=== PATIENT | male | born 1965 | race Two or more races ===

== ENCOUNTER 2025-03-16 12:16 | Inpatient (IN) | payer OTHER, BC ==
[~2025-03-16] VITALS: Ht 180.3 cm; Wt 89.0 kg
[~2025-03-16 12:16] MED LIST: RAMI10CA38
[2025-03-16 12:38] LABS: Hematocrit 49.1 % (41.0-53.0); Hemoglobin 16.7 g/dL (13.5-17.5); Mean Corpuscular Hemoglobin 31.6 pg (28.0-32.0); Mean Corpuscular Volume 92.9 fL (80.0-100.0); Nucleated Red Blood Cells % 0.2 %
[2025-03-16 12:46] LABS: Potassium 3.5 mmol/L (3.5-5.1); Sodium 140 mmol/L (136-145)
[2025-03-16 12:47] LABS: Anion Gap 9 (5-15); Calcium 9.5 mg/dL (8.7-10.4); Carbon Dioxide 34 mmol/L (20-31); Chloride 97 mmol/L (98-107)
[2025-03-16 12:52] LABS: BUN/Creatinine Ratio 14.9 (10.0-20.0); Blood Urea Nitrogen 10 mg/dL (9-23)
[2025-03-16 12:56] LABS: Glucose 122 mg/dL (74-106)
--- NOTE | 2025-03-16 13:20 | ECG ---
[facility] Test Date: 2025-03-16 Test Time: 13:18:33 Pat Name: SANGEETA LARRY Department: [facility] ED Room: [address] [place] [address] Gender: M Public Health Advisor: DA : 1965 Requested By: TONI PERRIN Order Number: [id number] Reading MD: Tmoasz Morse Measurements Intervals [place] Rate: 62 P: 43 TN: 196 QRS: 75 QRSD: 112 T: 26 QT: 411 QTc: 418 Interpretive Statements Sinus rhythm Borderline intraventricular conduction delay Electronically Signed On 03-17-2025 15:28:30 PST by Tomasz Morse Please click the below link to view image of tracing.
--- NOTE | 2025-03-16 13:21 | DVH ---
EXAM: XY CHEST PORTABLE HISTORY: CHEST PAIN TECHNIQUE: 1 view of the chest COMPARISON: None FINDINGS/IMPRESSION: LUNGS: No pleural effusion, consolidation, or pneumothorax. Low lung volumes, which cause crowding of the bronchovascular markings. MEDIASTINUM: Unremarkable. BONES: No acute osseous abnormality. OTHER: None.
--- NOTE | 2025-03-16 13:35 | ED.PDOC ---
HPI Comments This is a 59 year old male presenting to the ED with chief complaint of chest pain. Patient reports that he has been experiencing chest tightness with associated cough and hemoptysis for the past few days. Patient relays that he has had a recent cold as well. Patient denies any SOB, dizziness, fever, chills, N/V, or headache. Chief Complaint: Chest Pain Time Seen by MD: 13:32 Primary Care Provider: HENRY Villela Notes: Nurses Notes, Medications, Allergies Allergies: Coded Allergies: Ciprofloxacin (Verified Allergy, Unknown, 03/16/25) Hydrocodone (Verified Allergy, Unknown, 03/16/25) Home Meds Reported Medications [Ausitiqm40 Mg] (Ramipril) 10 MG CAP No Conflict Check, MG 08/06/12 Information Source: Patient Mode of Arrival: Ambulatory Severity: Moderate Timing: Days Duration: Since onset Prehospital treatment: None Location: Substernal Quality: Tightness Onset: At Rest Cardiac Risk Factors: HTN, Diabetes PE Risk Factors: None History of: None Past Medical History PAST MEDICAL HISTORY: DM, HTN Surgical History: Denies all surgeries Family History Family History: Reviewed,noncontributory to illness, Unknown Social History Smoker: Non-Smoker Alcohol: Denies ETOH Use Drugs: Denies Drug Use Lives In: Home Constitutional: denies: chills, diaphoresis, fatigue, fever, malaise, sweats, weakness, others EENTM: denies: blurred vision, double vision, ear bleeding, ear discharge, ear drainage, ear pain, ear ringing, eye pain, eye redness, hearing loss, mouth pain, mouth swelling, nasal discharge, nose bleeding, nose congestion, nose pain, photophobia, tearing, throat pain, throat swelling, voice changes, others Respiratory: reports: cough, hemoptysis; denies: orthopnea, SOB at rest, shortness of breath, SOB with excertion, stridor, wheezing, others Cardiovascular: reports: chest pain; denies: dizzy spells, diaphoresis, Dyspnea on exertion, edema, irregular heart beat, left arm pain, lightheadedness, palpitations, PND, syncope, others Gastrointestinal: denies: abdomen distended, abdominal pain, blood streaked bowels, constipated, diarrhea, dysphagia, difficulty swallowing, hematemesis, melena, nausea, poor appetite, poor fluid intake, rectal bleeding, rectal pain, vomiting, others Genitourinary: denies: burning, dysuria, flank pain, frequency, hematuria, incontinence, penile discharge, penile sore, pain, testicle pain, testicle swelling, urgency, others Neurological: denies: dizziness, fainting, headache, left sided numbness, left sided weakness, numbness, paresthesia, pre-existing deficit, right sided numbness, right sided weakness, seizure, speech problems, tingling, tremors, weakness, others Musculoskeletal: denies: back pain, gout, joint pain, joint swelling, muscle pain, muscle stiffness, neck pain, others Integumetry: denies: bruises, change in color, change in hair/nails, dryness, laceration, lesions, lumps, rash, wounds, others Allergic/Immunocompromised: denies: Difficulty Healing, Frequent Infections, Hives, Itching, others Hematologic/Lymphatic: denies: anemia, blood clots, easy bleeding, easy bruising, swollen glands, others Endocrine: denies: excessive hunger, excessive sweating, excessive thirst, excessive urination, flushing, intolerance to cold, intolerance to heat, unexplained weight gain, unexplained weight loss, others Psychiatric: denies: anxiety, bipolar disorder, depression, hopeless, panic di sorder, schizophrenia, sleepless, suicidal, others All Other Systems: Reviewed and Negative Physical Exam General Appearance: Moderate Distress, Normal HEENT: Normal ENT Inspection, Pharynx Normal, TMs Normal Neck: Full Range of Motion, Non-Tender, Normal, Normal Inspection Respiratory: Chest Non-Tender, Lungs Clear, No Accessory Muscle Use, No Respiratory Distress, Normal Breath Sounds Cardiovascular: No Edema, No JVD, No Murmur, No Gallop, Normal Peripheral Pulses, Regular Rate/Rhythm Breast Exam: Deferred Gastrointestinal: No Organomegaly, Non Tender, No Pulsatile Mass, Normal Bowel Sounds, Soft Genitalia: Deferred Pelvic: Deferred Rectal: Deferred Extremities: No calf tenderness, Normal capillary refill, Normal inspection, Normal range of motion, Non-tender, No pedal edema Musculoskeletal : Apperance: Normal Neurologic: Alert, rail splitter II-XII nml as Tested, No Motor Deficits, Normal Affect, Normal Mood, No Sensory Deficits Cerebellar Function: Normal Reflexes: Normal Skin: Dry, Normal Color, Warm Peripheral Pulses: 3+ Radial (R), 3+ Radial (L) Lymphatic: No Adenopathy EKG EKG : Pulse Rate (adult): 62 [place]: Normal Cardiac Rhythm: NSR Block: None Hypertrophy: None ST: Normal Was a procedure done? Was a procedure done?: No CP Differential Dx Differential Diagnosis: A-fib, A-Flutter, Angina, Anxiety / Panic Attack, Atrial Dysrhythmia, Electrolyte Disorder X-Ray, Labs, Meds, VS Vital Signs Date Time Temp Pulse Resp B/P (MAP) Pulse Ox O2 Delivery O2 Flow Rate FiO2 03/16/25 14:20 126/74 03/16/25 14:15 97.4 59 16 126/74 (91) 95 97.4 03/16/25 13:35 62 03/16/25 13:18 62 03/16/25 12:20 59 03/16/25 12:18 97.7 59 20 148/94 95 97.7 Lab Test 03/16/25 14:00 03/16/25 13:15 03/16/25 12:25 Range/Units Urine Color Light-yellow Yellow Urine Clarity Clear Clear Urine pH 6.5 5.0-9.0 Urine Specific [place] 1.012 1.001-1.035 Urine Protein Negative Negative Urine Ketones Negative Negative Urine Blood Negative Negative /uL Urine Nitrite Negative Negative Urine Bilirubin Negative Negative Urine Urobilinogen Normal Negative mg/dL Urine Leukocyte Esterase Negative Negative /uL Urine RBC None seen 0 - 3 /hpf Urine Microscopic WBC 0-3 /HPF Urine Squamous Epithelial Cells None seen <5 /hpf Urine Bacteria None seen None Seen /hpf Urine Glucose Normal Normal mg/dL Troponin I High Sensitivity 5 4 </=54 ng/L White Blood Count 6.5 4.4-10.8 10^3/uL Red Blood Count 5.28 4.5-5.90 10^6/uL Hemoglobin 16.7 13.5-17.5 g/dL Hematocrit 49.1 41.0-53.0 % Mean Corpuscular Volume 92.9 80.0-100.0 fL Mean Corpuscular Hemoglobin 31.6 28.0-32.0 pg Mean Corpuscular Hemoglobin Concent 34.0 32.0-36.0 g/dL Red Cell Distribution Width 12.6 11.8-14.3 % Platelet Count 144 140-450 10^3/uL Mean Platelet Volume 9.7 6.9-10.8 fL Neutrophils (%) (Auto) 69.5 37.0-80.0 % Lymphocytes (%) (Auto) 21.8 10.0-50.0 % Monocytes (%) (Auto) 7.6 0.0-12.0 % Eosinophils (%) (Auto) 0.8 0.0-7.0 % Basophils (%) (Auto) 0.3 0.0-2.0 % Neutrophils # (Auto) 4.5 1.6-8.6 10 ^3/uL Lymphocytes # (Auto) 1.4 0.4-5.4 10 ^3/uL Monocytes # (Auto) 0.5 0-1.3 10 ^3/uL Eosinophils # (Auto) 0.1 0-0.8 10 ^3/uL Basophils # (Auto) 0 0-0.2 10 ^3/uL Nucleated Red Blood Cells 0.2 % Sodium Level 140 136-145 mmol/L Potassium Level 3.5 3.5-5.1 mmol/L Chloride Level 97 L 98-107 mmol/L Carbon Dioxide Level 34 H 20-31 mmol/L Anion Gap 9 5-15 Blood Urea Nitrogen 10 9-23 mg/dL Creatinine 0.67 L 0.700-1.30 mg/dL Glomerular Filtration Rate Calc 108 >90 mL/min BUN/Creatinine Ratio 14.9 10.0-20.0 Serum Glucose 122 H 74-106 mg/dL Calcium Level 9.5 8.7-10.4 mg/dL Current Medications Medications (Trade) Dose Ordered Sig/Manuel Route Start Time Stop Time Status Last Admin Aspirin 325 mg ONCE ONCE PO 03/16/25 13:30 03/16/25 13:31 DC 03/16/25 14:19 Nitroglycerin (Ntrostat Sublingual) 0.4 mg ONCE ONCE SL 03/16/25 13:30 03/16/25 13:31 DC 03/16/25 14:20 Patient alert. Complaining of chest pain. Vitals stable. Answering questions. Was given aspirin. Was given nitro. WBC within normal limits. Hemoglobin within normal limits. EKG reviewed does not show any acute changes. Continues to have chest pain. Unstable for transfer. Norden approved inpatient admission [id number]. Continue monitoring. X-Ray, Labs, Meds, VS Comment [facility] [address] [facility] [address] Ph: [phone] DIAGNOSTIC IMAGING Diagnostic Imaging Report : [id number] Signed PATIENT: SANGEETA LARRY ACCT: [id number] UNIT: [id number] : 1965 LOC: ER ROOM / BED: / AGE / SEX: 59 / M ADM STATUS: REG ER SERVICE 21 ORDERING PHYSICIAN: TONI PERRIN MD PROCEDURE(s): CXRP - CHEST PORTABLE REASON: CHEST PAIN ORDER NUMBER(s): [id number], ACCESSION NUMBER(s): [id number] EXAM: XY CHEST PORTABLE HISTORY: CHEST PAIN TECHNIQUE: 1 view of the chest COMPARISON: None FINDINGS/IMPRESSION: LUNGS: No pleural effusion, consolidation, or pneumothorax. Low lung volumes, which cause crowding of the bronchovascular markings. MEDIASTINUM: Unremarkable. BONES: No acute osseous abnormality. OTHER: None. ATED BY: SCHUYLER LANDIS MD DICTATED DATE/TIME: 03/16/251317 SIGNED BY: SCHUYLER LANDIS MD SIGNED DATE/TIME: 03/16/251317 CC: Images Reviewed?: Images reviewed and evaluated by me Time of 1ST Reevaluation: 14:32 Reevaluation 1ST: Unchanged Patient Education/Counseling: Diagnosis, Treatment Family Education/Counseling: No Family Present SEPSIS Sepsis Screen Date sepsis recognized/suspect: Mar 16, 2025 Time Sepsis recognized/suspect: 1218 Recent Procedure: No On Antibiotic Therapy: No Respiratory Rate >20: No Heart Rate >90: No Temp<36 C (96.8 F) or >38.3 C: No SBP <90 or MAP <65 mmHG: No New Acute Mental Status Change: No Is the patient on CPAP, BIPAP,: No Physician Orders Chest Portable (03/16/25 12:22) Electrocardigram (03/16/25 13:18) Electrocardigram (03/16/25 15:18) Vital Signs Date Time Temp Pulse Resp B/P (MAP) Pulse Ox O2 Delivery O2 Flow Rate FiO2 03/16/25 14:20 126/74 03/16/25 14:15 97.4 59 16 126/74 (91) 95 97.4 03/16/25 13:35 62 03/16/25 13:18 62 03/16/25 12:20 59 03/16/25 12:18 97.7 59 20 148/94 95 97.7 Laboratory Tests Test 03/16/25 12:25 White Blood Count 6.5 10^3/uL (4.4-10.8) Medications Medications Dose Ordered Sig/Manuel Route Start Time Stop Time Status Last Admin Dose Admin Aspirin 325 mg ONCE ONCE PO 03/16/25 13:30 03/16/25 13:31 DC 03/16/25 14:19 Nitroglycerin 0.4 mg ONCE ONCE SL 03/16/25 13:30 03/16/25 13:31 DC 03/16/25 14:20 Departure 1 Departure Time of Disposition: 14:24 Impression: Primary Impression: Chest pain of unknown etiology Disposition: ADMITTED INPATIENT Admit to: Med Surg Condition: Guarded Critical Care Note Critical Care Time?: Yes (90 min-critical care time only) Stability Stability form required: No Heart Score Heart Score: Heart Score Response (Comments) Value History Slightly Suspicious 0 EKG Normal 0 Age 45-64 1 Risk Factors >3 or Hx ASHD 2 Troponin Normal limit 0 Total 3 I personally scribed for TONI PERRIN MD ([email or web address]) on 03/16/25 at 13:35. Electronically submitted by Wagner Larson ([email or web address]). I personally scribed for TONI PERRIN MD ([email or web address]) on 03/16/25 at 13:35. Electronically submitted by Wagner Larson ([email or web address]). I personally scribed for TONI PERRIN MD ([email or web address]) on 03/16/25 at 13:57. Electronically submitted by Wagner Larson ([email or web address]). TONI PERRIN MD Mar 16, 2025 13:35
[2025-03-16] MEDS: NITROGLYCERIN 0.4 MG SL TAB SL ONE (14:20)
[2025-03-16 14:38] LABS: Urine Protein, UAD Negative (Negative)
[2025-03-16] MEDS ORDERED: ONDANSETRON HCL 4 MG/2 ML VIAL IV PRN (19:15)
[2025-03-16] MEDS ORDERED: NITROGLYCERIN 0.4 MG SL TAB SL PRN (19:15)
[2025-03-16] MEDS ORDERED: MORPHINE SULFATE INJ 2 MG/ml SYRG IV PRN (19:15)
[2025-03-16] MEDS ORDERED: ACETAMINOPHEN 325 MG TAB PO PRN (19:15)
[2025-03-16] MEDS ORDERED: DEXTROSE (50%) 50ML SYRG IV PRN (19:15)
[2025-03-16] MEDS: InsuLIN REG 1unit/0.01ml Soln (100units/ml) SC SCH (22:00)
[2025-03-16] MEDS: ACCU-CHEK COMFORT CURVE STRIP VI SCH (22:16)
[2025-03-16 22:33] VITALS: BP 127/68; PULSE 61; RESP 18; O2SAT 93
--- NOTE | 2025-03-16 22:36 | DVHHP2 ---
History of Present Illness Reason for Visit: Chest pain History of Present Illness 69-year-old male presents for evaluation of chest pain. Patient reports a two day history of substernal pressure-like nonradiating chest pain denies nausea or vomiting. No shortness for breath. No cough or fever. Past Medical History Hypertension, diabetes mellitus Past Surgical History Denies Family History Noncontributory Smoke: No ALCOHOL: none Drugs: None Lives: with Family Review of Systems Review of Systems Review of systems are currently negative otherwise addressed in HPI. Allergies: Coded Allergies: Ciprofloxacin (Verified Allergy, Unknown, 03/16/25) Hydrocodone (Verified Allergy, Unknown, 03/16/25) Medications Current Medications Medications Dose Ordered Sig/Manuel Route Start Time Stop Time Status Last Admin Dose Admin Aspirin 81 mg DAILY PO 03/17/25 10:00 Lisinopril 10 mg DAILY PO 03/17/25 10:00 Hydrochlorothiazide 12.5 mg DAILY PO 03/17/25 10:00 Diagnostic Test (Pha) 1 strip ACHS 03/16/25 22:00 03/16/25 22:16 1 STRIP Insulin Human Regular ACHS SC 03/16/25 22:00 Dextrose 50 ml UD PRN IV 03/16/25 19:15 Ondansetron HCl 4 mg Q4HP PRN IV 03/16/25 19:15 Acetaminophen 650 mg Q6HP PRN PO 03/16/25 19:15 Nitroglycerin 0.4 mg Q5MINP PRN SL 03/16/25 19:15 Morphine Sulfate 2 mg Q30M PRN IV 03/16/25 19:15 Exam Vital Signs Vital Signs Date Time Temp Pulse Resp B/P (MAP) Pulse Ox O2 Delivery O2 Flow Rate FiO2 03/16/25 22:24 Room Air* 0 21 03/16/25 20:03 98.2 60 16 143/75 (97) 95 98.2 Exam Gen: 59-year-old male in mild distress Skin: Warm, dry, normal color and texture, no rash. HEENT: Normocephalic atraumatic, mucous membranes moist and pink. Neck: Cervical and supraclavicular nodes normal without enlargement, trachea is midline, thyroid gland is normal without masses. Pulmonary: Clear to auscultation and percussion bilaterally. Cardiac: Regular rate and rhythm. No murmur Abdomen: Soft, nontender, nondistended, bowel sounds present all 4 quadrants, no guarding, no rigidity, no organomegaly. Extremities: No cyanosis, clubbing, no edema Neuro: Cranial nerves II through XII grossly intact, normal affect and speech, no focal motor deficits. Labs/Xrays ORDERING PHYSICIAN: TONI PERRIN MD PROCEDURE(s): CXRP - CHEST PORTABLE REASON: SOB ORDER NUMBER(s): [id number], ACCESSION NUMBER(s): [id number] INDICATION: SOB TECHNIQUE: Frontal view of the chest. COMPARISON: XY CHEST XRAY 1 VIEW on DOS: 02/17/25 FINDINGS: . The heart and mediastinal contours are grossly unremarkable. There is no evidence of pleural disease. The lungs are clear. The bony structures of the chest are intact without fracture. IMPRESSION: 1. No evidence of acute disease. Labs Test 03/16/25 14:00 03/16/25 13:15 03/16/25 12:25 Range/Units Urine Color Light-yellow Yellow Urine Clarity Clear Clear Urine pH 6.5 5.0-9.0 Urine Specific [place] 1.012 1.001-1.035 Urine Protein Negative Negative Urine Ketones Negative Negative Urine Blood Negative Negative /uL Urine Nitrite Negative Negative Urine Bilirubin Negative Negative Urine Urobilinogen Normal Negative mg/dL Urine Leukocyte Esterase Negative Negative /uL Urine RBC None seen 0 - 3 /hpf Urine Microscopic WBC 0-3 /HPF Urine Squamous Epithelial Cells None seen <5 /hpf Urine Bacteria None seen None Seen /hpf Urine Glucose Normal Normal mg/dL Troponin I High Sensitivity 5 </=54 ng/L White Blood Count 6.5 4.4-10.8 10^3/uL Red Blood Count 5.28 4.5-5.90 10^6/uL Hemoglobin 16.7 13.5-17.5 g/dL Hematocrit 49.1 41.0-53.0 % Mean Corpuscular Volume 92.9 80.0-100.0 fL Mean Corpuscular Hemoglobin 31.6 28.0-32.0 pg Mean Corpuscular Hemoglobin Concent 34.0 32.0-36.0 g/dL Red Cell Distribution Width 12.6 11.8-14.3 % Platelet Count 144 140-450 10^3/uL Mean Platelet Volume 9.7 6.9-10.8 fL Neutrophils (%) (Auto) 69.5 37.0-80.0 % Lymphocytes (%) (Auto) 21.8 10.0-50.0 % Monocytes (%) (Auto) 7.6 0.0-12.0 % Eosinophils (%) (Auto) 0.8 0.0-7.0 % Basophils (%) (Auto) 0.3 0.0-2.0 % Neutrophils # (Auto) 4.5 1.6-8.6 10 ^3/uL Lymphocytes # (Auto) 1.4 0.4-5.4 10 ^3/uL Monocytes # (Auto) 0.5 0-1.3 10 ^3/uL Eosinophils # (Auto) 0.1 0-0.8 10 ^3/uL Basophils # (Auto) 0 0-0.2 10 ^3/uL Nucleated Red Blood Cells 0.2 % Sodium Level 140 136-145 mmol/L Potassium Level 3.5 3.5-5.1 mmol/L Chloride Level 97 L 98-107 mmol/L Carbon Dioxide Level 34 H 20-31 mmol/L Anion Gap 9 5-15 Blood Urea Nitrogen 10 9-23 mg/dL Creatinine 0.67 L 0.700-1.30 mg/dL Glomerular Filtration Rate Calc 108 >90 mL/min BUN/Creatinine Ratio 14.9 10.0-20.0 Serum Glucose 122 H 74-106 mg/dL Calcium Level 9.5 8.7-10.4 mg/dL SEPSIS Sepsis Screen Date sepsis recognized/suspect: Mar 16, 2025 Time Sepsis recognized/suspect: 8 Recent Procedure: No On Antibiotic Therapy: No Respiratory Rate >20: No Heart Rate >90: No Temp<36 C (96.8 F) or >38.3 C: No SBP <90 or MAP <65 mmHG: No New Acute Mental Status Change: No Is the patient on CPAP, BIPAP,: No Physician Orders Aspirin Tablet (03/17/25 10:00) Lisinopril Tablet (Zestril Tablet) (03/17/25 10:00) Hydrochlorothiazide Tablet (Hydrochlorot (03/17/25 10:00) Basic Metabolic Panel (03/17/25 04:00) Glucose Blood (Accu-Chek Comfort Curve T (03/16/25 22:00) Insulin R (Human) (Insulin R) (03/16/25 22:00) Dextrose 50% Syringe (03/16/25 19:15) Admit (03/16/25 19:06) Ondansetron Hcl (Zofran) (03/16/25 19:15) Cardiac Diet-2gna,Lofat,Lochol (03/17/25 Breakfast) Echo 2d Mode Cardiac Dop (03/16/25 19:06) Condition: Fair (03/16/25 19:06) Acetaminophen Tablet (Tylenol Tablet) (03/16/25 19:15) Bedrest With Bathroom Privileg (03/16/25 19:06) Nitroglycerin Sublingual (Ntrostat Subli (03/16/25 19:15) Morphine Sulfate Injection (03/16/25:15) Stat Ekg For Chest Pain (03/16/25 19:06) Notify Of Changes From Base (03/16/25 19:06) Product Test Specialist For 24 Hours (03/16/25 19:06) Emergency Dysrhythmia Protocol (03/16/25 19:06) Rhythm Strips Once Every Shift (03/16/25 19:06) Oxygen By Nasal Cannula (03/16/25 19:06) Vital Signs Date Time Temp Pulse Resp B/P (MAP) Pulse Ox O2 Delivery O2 Flow Rate FiO2 03/16/25 22:24 Room Air* 0 21 03/16/25 20:03 98.2 60 16 143/75 (97) 95 98.2 03/16/25 16:25 98.3 65 16 149/100 (116) 95 98.3 Laboratory Tests Test 03/16/25 12:25 White Blood Count 6.5 10^3/uL (4.4-10.8) Medications Medications Dose Ordered Sig/Manuel Route Start Time Stop Time Status Last Admin Dose Admin Aspirin 325 mg ONCE ONCE PO 03/16/25 13:30 03/16/25 13:31 DC 03/16/25 14:19 325 MG Diagnostic Test (Pha) 1 strip ACHS 03/16/25 22:00 03/16/25 22:16 1 STRIP Nitroglycerin 0.4 mg ONCE ONCE SL 03/16/25 13:30 03/16/25 13:31 DC 12/21/25 14:20 0.4 MG Assessment/Plan Assessment/Plan Assessment Chest pain rule out ACS Hypertension Diabetes mellitus Plan Admit the patient to telemetry to the hospitalist Echocardiogram pending Resume home medications Continue treatment per orders. Plan discussed with: Patient My Orders Orders - ORLANDO FORTUNE Procedure Category Date Status Time Aspirin Tablet PHA 03/17/25 In Process 10:00 Lisinopril Tablet PHA 03/17/25 In Process (Zestril Tablet) 10:00 Hydrochlorothiazide PHA 03/17/25 In Process Tablet (Hydrochlorot 10:00 Basic Metabolic Panel LAB 03/17/25 Verified 04:00 Glucose Blood PHA 03/16/25 In Process (Accu-Chek Comfort 22:00 Insulin R (Human) PHA 03/16/25 In Process (Insulin R) 22:00 Dextrose 50% Syringe PHA 03/16/25 In Process 19:15 Admit ADMIT 03/16/25 Transmitted 19:06 Ondansetron Hcl PHA 03/16/25 In Process (Zofran) 19:15 Cardiac DIET 03/17/25 Transmitted Diet-2gna,Lofat,Lochol Breakfast Echo 2d Mode Cardiac US 03/16/25 Logged DOP 19:06 Condition: Fair RIC 03/16/25 In Process 19:06 Acetaminophen Tablet PHA 03/16/25 In Process (Tylenol Tablet) 19:15 Bedrest With Bathroom [facility] 03/16/25 In Process Privileg 19:06 Nitroglycerin PHA 03/16/25 In Process Sublingual (Ntrostat 19:15 Morphine Sulfate PHA 03/16/25 In Process Injection 19:15 Stat Ekg For Chest [facility] 03/16/25 In Process Pain 19:06 Notify Md Of Changes [facility] 03/16/25 In Process From Base 19:06 Product Test Specialist For [facility] 03/16/25 In Process 24 Hours 19:06 Emergency Dysrhythmia [facility] 03/16/25 In Process Protocol 19:06 Rhythm Strips Once [facility] 03/16/25 In Process Every Shift 19:06 Oxygen By Nasal RT 03/16/25 Transmitted Cannula 19:06 Date of Service: Mar 16, 2025 Billing Provider: ORLANDO FORTUNE Common Visit Codes: [id number] INP/OBS CARE (HIGH) ORLANDO FORTUNE Mar 16, 2025 22:36
[2025-03-16 23:07] LABS: Triglycerides 124 mg/dL (< 150)
[2025-03-16 23:09] LABS: Cholesterol 174 mg/dL (< 200); HDL Cholesterol 54 mg/dL (40-59)
[2025-03-16] MEDS ORDERED: LISI-285 PO (23:24)
[2025-03-16] MEDS ORDERED: PANT40TA2 PO (23:24)
[2025-03-16] MEDS: MELATONIN 5 MG TAB PO ONE (23:37)
[2025-03-17] VITALS (9 sets, daily range): BP systolic 114–143; BP diastolic 62–87; PULSE 61–68; RESP 16–20; TEMP 97.5–98.7; O2SAT 94–99
[2025-03-17 04:32] LABS: Anion Gap 8 (5-15); Sodium 139 mmol/L (136-145)
[2025-03-17 04:33] LABS: Calcium 9.4 mg/dL (8.7-10.4)
[2025-03-17 04:38] LABS: BUN/Creatinine Ratio 13.4 (10.0-20.0)
[2025-03-17 04:46] LABS: Blood Urea Nitrogen 9 mg/dL (9-23); Carbon Dioxide 34 mmol/L (20-31); Chloride 97 mmol/L (98-107); Glucose 108 mg/dL (74-106); Potassium 3.4 mmol/L (3.5-5.1)
[2025-03-17] MEDS: LISINOPRIL 5 MG TAB PO SCH (09:16)
[2025-03-17] MEDS: hydroCHLOROthiazide 25 MG TAB PO SCH (09:17)
--- NOTE | 2025-03-17 12:00 | DVHPN2 ---
Progress Note Date Seen: Mar 17, 2025 Medical Necessity Reason Pt with a Central, PICC or Fol: No Subjective Patient reports: No new complaints Review of Systems: HEENT:Normal, CVS:Normal, RESPIRATORY:Normal, GI:Normal, :Normal, MSK:Normal, NEURO:Normal Objective vital signs Vital Sign Date Time Temp Pulse Resp B/P (MAP) Pulse Ox O2 Delivery O2 Flow Rate FiO2 03/17/25 09:17 143/85 03/17/25 08:00 61 20 99 Room Air* 0 21 03/17/25 05:22 98.2 98.2 Total Intake and Output 03/16/25 03/16/25 03/17/25 15:00 23:00 07:00 Intake Total 240 ml Balance 240 ml medications Current Medications Medications Dose Ordered Sig/Manuel Route Start Time Stop Time Status Last Admin Dose Admin Aspirin 81 mg DAILY PO 03/17/25 10:00 03/17/25 09:17 81 MG Lisinopril 10 mg DAILY PO 03/17/25 10:00 03/17/25 09:16 10 MG Hydrochlorothiazide 12.5 mg DAILY PO 03/17/25 10:00 Diagnostic Test (Pha) 1 strip ACHS 03/16/25 22:00 03/17/25 07:16 1 STRIP Insulin Human Regular ACHS SC 03/16/25 22:00 Dextrose 50 ml UD PRN IV 03/16/25 19:15 Ondansetron HCl 4 mg Q4HP PRN IV 03/16/25 19:15 Acetaminophen 650 mg Q6HP PRN PO 03/16/25 19:15 Nitroglycerin 0.4 mg Q5MINP PRN SL 03/16/25 19:15 Morphine Sulfate 2 mg Q30M PRN IV 03/16/25 19:15 Examination: GENERAL:Normal, HEENT:Normal, NECK:Normal, LUNGS:Normal, CVS:Normal, ABDOMEN:Normal, MSK:Normal, SKIN:Normal, NEURO:Normal, :Normal laboratory and microbiology Laboratory Tests 03/17/25 03:19 03/16/25 12:25 Test 03/17/25 03:19 Range/Units Serum Glucose 108 H 74-106 mg/dL Problem List/Assessment/Plan Problem List/Assessment/Plan #1 chest pain ?cad: cardio eval #2 ?acute bronchitis: iv doxy #3 dm: ssi #4 htn #6 obesity advance care planning- full code- time spent 18 mins Plan discussed with: Patient My Orders My Orders Orders - ORLANDO BARRON MD Procedure Category Date Status Time * Cardiology Consult CONS 03/17/25 Verified 11:56 Doxycycline PHA 03/17/25 Verified 100mg/100ml 12:00 Date of Service: Mar 17, 2025 Billing Provider: ORLANDO BARRON MD Common Visit Codes: [id number] INP/OBS CARE(HIGH) Secondary Visit Codes: [id number] CARE PLAN 30 MINUTES ORLANDO BARRON MD Mar 17, 2025 12:00
--- NOTE | 2025-03-17 12:06 | ECG ---
[facility] Test Date: 2025-03-16 Test Time: 12:20:32 Pat Name: SANGEETA LARRY Department: ED Room: [address] [place] [address] Gender: M Automatic Silk Screen Printer: dr PATRICIA: 1965 Requested By: TONI PERRIN Order Number: [id number] Reading MD: Tomasz Morse Measurements Intervals [place] Rate: 59 P: -10 UT: 135 QRS: 79 QRSD: 111 T: 7 QT: 415 QTc: 412 Interpretive Statements Sinus rhythm Anteroseptal infarct, old Electronically Signed On 03-17-2025 15:28:26 PST by Tomasz Morse Please click the below link to view image of tracing.
--- NOTE | 2025-03-17 14:02 | DVHINCON2 ---
Date Seen: Mar 17, 2025 Referring Physician MD Neo Reason for Consultation Chest pain History of Present Illness This is a 59-year-old male patient who presents to emergency room with chief complaint of chest pressure and difficulty swallowing. The patient reports he has been experiencing flu-like symptoms for the last two weeks. The patient reports he went to [facility] yesterday to be evaluated for chest pressure and difficulty swallowing. He was told to come to the emergency room for further evaluation. The patient describes the chest pain as unprovoked, intermittent, pressure-like in nature, right-sided with slight radiation to the substernal area. He denies any associated symptoms. He denies any aggravating or alleviating factors. Initial twelve electrocardiogram reveals sinus bradycardia without any significant ST segment changes. Troponin levels have been negative. Significant past medical history includes hypertension, type 2 diabetes mellitus, GERD, history of tobacco use, and obesity. The patient denies any previous cardiac workup. Past Medical History Past medical history reviewed. No other significant than mentioned above. Past Surgical History Left rotator cuff repair Right trigger finger release Family History: FH: Parkinson's disease G8 FATHER FH: colon cancer G8 MOTHER FH: dementia G8 FATHER Family History Family history reviewed. Social History Patient has a seven pack-year history, quit smoking 17 years ago Patient reports remote cocaine use over 33 years ago Patient admits to social alcohol use Allergies: Coded Allergies: Ciprofloxacin (Verified Allergy, Unknown, 03/16/25) Hydrocodone (Verified Allergy, Unknown, 03/16/25) Home Meds Reported Medications Pantoprazole Sodium Sesquihydr (Protonix) 40 Mg Tab, 40 MG PO DAILY, #30 TAB 03/16/25 Lisinopril & Hydrochlorothiazi (Lisinopril/Hydrochlorothi) 1 Tab Tab, 1 TAB PO DAILY, #30 TAB 5 Refills 03/16/25 Discontinued Reported Medications [[id number] Mg] (Ramipril) 10 MG CAP No Conflict Check, MG 08/06/12 Home Meds Home medications reviewed. Current Medications Current Medications Medications (Trade) Dose Ordered Sig/Manuel Route PRN Reason Start Time Stop Time Status Last Admin Aspirin 81 mg DAILY PO 03/17/25 10:00 03/17/25 09:17 Lisinopril (Zestril Tablet) 10 mg DAILY PO 03/17/25 10:00 03/17/25 09:16 Hydrochlorothiazide (hydroCHLOROthiazide TABLET) 12.5 mg DAILY PO 03/17/25 10:00 03/17/25 11:59 DC Diagnostic Test (Pha) (Accu-Chek Comfort Curve T) 1 strip ACHS 03/16/25 22:00 03/17/25 11:30 Insulin Human Regular (InsuLIN R) ACHS SC 03/16/25 22:00 03/17/25 12:09 Dextrose 50 ml UD PRN IV Blood Sugar LESS THAN 60 03/16/25 19:15 Ondansetron HCl (Zofran) 4 mg Q4HP PRN IV NAUSEA / VOMITING 03/16/25 19:15 Acetaminophen (Tylenol Tablet) 650 mg Q6HP PRN PO PAIN SCALE 1-3 OR TEMP>100.4 03/16/25 19:15 Nitroglycerin (Ntrostat Sublingual) 0.4 mg Q5MINP PRN SL FOR CHEST PAIN 03/16/25 19:15 Morphine Sulfate 2 mg Q30M PRN IV FOR CHEST PAIN 03/16/25 19:15 Doxycycline Hyclate 100 ml @ 50 mls/hr Q12H IV 03/17/25 12:00 Review of Systems Constitutional: No symptom reported Ears, Nose, & Throat: No symptom reported Eyes: No symptom reported Neurological: No symptoms reported Pulmonary/Respiratory: No symptoms reported Cardiovascular: Chest pain Gastrointestinal: No symptom reported Genitourinary: No symptom reported Musculoskeletal: No symptom reported Skin: No symptom reported Psychiatric: No symptom reported Endocrine: No symptom reported Hematologic/Lymphatic: No symptom reported Vital Signs Vital Signs Date Time Temp Pulse Resp B/P (MAP) Pulse Ox O2 Delivery O2 Flow Rate FiO2 03/17/25 09:17 143/85 03/17/25 08:00 61 20 99 Room Air* 0 03/17/25 05:22 98.2 98.2 Physical Exam General Appearance: Cooperative. Obese Pulmonary/Respiratory: Clear, bilateral breaths sounds. Cardiovascular/Chest: Regular rate and rhythm. Peripheral Pulses: 2+ Radial (R). 2+ Radial (L). 2+ Pedal (R). 2+ Pedal (L) Abdominal Exam: Normal bowel sounds. Ankle Exam: Negative ankle edema Lower extremities: Negative lower extremity edema Neuro/Mental Status: A/OX4, coherent. Thoughts/Psych: Normal thought pattern. Appropriate mood and affect. Good judgment and insight. Appearance: No acute distress. Skin Exam: Normal inspection. Normal color. Warm and dry. Labs/Diagnostic Data Labs Test 03/17/25 11:16 03/17/25 03:19 03/16/25 14:00 03/16/25 13:15 Range/Units POC Glucose 161 H 70-106 mg/dl Sodium Level 139 136-145 mmol/L Potassium Level 3.4 L 3.5-5.1 mmol/L Chloride Level 97 L 98-107 mmol/L Carbon Dioxide Level 34 H 20-31 mmol/L Anion Gap 8 5-15 Blood Urea Nitrogen 9 9-23 mg/dL Creatinine 0.67 L 0.700-1.30 mg/dL Glomerular Filtration Rate Calc 108 >90 mL/min BUN/Creatinine Ratio 13.4 10.0-20.0 Serum Glucose 108 H 74-106 mg/dL Hemoglobin A1c 6.6 H <5.7 % A1C Calcium Level 9.4 8.7-10.4 mg/dL Magnesium Level 2.0 1.6-2.6 mg/dL Urine Color Light-yellow Yellow Urine Clarity Clear Clear Urine pH 6.5 5.0-9.0 Urine Specific Burke 1.012 1.001-1.035 Urine Protein Negative Negative Urine Ketones Negative Negative Urine Blood Negative Negative /uL Urine Nitrite Negative Negative Urine Bilirubin Negative Negative Urine Urobilinogen Normal Negative mg/dL Urine Leukocyte Esterase Negative Negative /uL Urine RBC None seen 0 - 3 /hpf Urine Microscopic WBC 0-3 /HPF Urine Squamous Epithelial Cells None seen <5 /hpf Urine Bacteria None seen None Seen /hpf Urine Glucose Normal Normal mg/dL Troponin I High Sensitivity 5 </=54 ng/L Triglycerides Level 124 < 150 mg/dL Cholesterol Level 174 < 200 mg/dL LDL Cholesterol 113 H < 100 mg/dL HDL Cholesterol 54 40-59 mg/dL Thyroid Stimulating Hormone (TSH) 0.98 0.55-4.78 uIU/mL Test 03/16/25 12:25 Range/Units White Blood Count 6.5 4.4-10.8 10^3/uL Red Blood Count 5.28 4.5-5.90 10^6/uL Hemoglobin 16.7 13.5-17.5 g/dL Hematocrit 49.1 41.0-53.0 % Mean Corpuscular Volume 92.9 80.0-100.0 fL Mean Corpuscular Hemoglobin 31.6 28.0-32.0 pg Mean Corpuscular Hemoglobin Concent 34.0 32.0-36.0 g/dL Red Cell Distribution Width 12.6 11.8-14.3 % Platelet Count 144 140-450 10^3/uL Mean Platelet Volume 9.7 6.9-10.8 fL Neutrophils (%) (Auto) 69.5 37.0-80.0 % Lymphocytes (%) (Auto) 21.8 10.0-50.0 % Monocytes (%) (Auto) 7.6 0.0-12.0 % Eosinophils (%) (Auto) 0.8 0.0-7.0 % Basophils (%) (Auto) 0.3 0.0-2.0 % Neutrophils # (Auto) 4.5 1.6-8.6 10 ^3/uL Lymphocytes # (Auto) 1.4 0.4-5.4 10 ^3/uL Monocytes # (Auto) 0.5 0-1.3 10 ^3/uL Eosinophils # (Auto) 0.1 0-0.8 10 ^3/uL Basophils # (Auto) 0 0-0.2 10 ^3/uL Nucleated Red Blood Cells 0.2 % Assessment Chest pain, rule out coronary ischemia Rule out structural heart disease Hypertension Type 2 diabetes mellitus Obesity History of tobacco use Plan/Recommendation We will continue with the following plan/recommendations (Dr. Carcamo): * Transthoracic echocardiogram to evaluate cardiac function * Chest pain protocol * HEART score: 3 points * Blood pressure control * Single antiplatelet therapy and lipid-lowering agent * Close cardiac surveillance * Nuclear stress test Patient seen and examined in the emergency room holding area with . Given patient clinical presentation and comorbidities, the patient was offered a nuclear stress test. Procedure explained to the patient who verbalized understanding and is agreeable to undergo stress test. We will schedule the patient on 03/18/2025. In the meantime, continue with close cardiac surveillance and notify cardiology team immediately for any ECG changes Thank you for allowing us to care for this patient. Please call with any questions or concerns. Critical care time spent: 44 minutes This medical document was created using an electronic medical record system with voice recognition software and computerized dictation system. Although this document has been carefully reviewed, there might still be some phonetic and typographical errors. Occasional wrong-word or ``sound-alike substitutions may have occurred due to the inherent limitations of voice recognition software. These areas are purely typographical due to imperfections of the software programs and do not reflect any compromise in the patient's medical care. Please read the chart carefully and recognize, using context, where these substitutions have occurred. Plan discussed with: Patient NYHA Physical activity limitations: NA Date of Service: Mar 17, 2025 Billing Provider: RICARDO ROGERS Cardiology Common Codes: 28430-DHBJLDM INP/OBS CARE (High) Cardiology Consultation Codes: 50464-[id number] CONSULT <45MIN RICARDO ROGERS Mar 17, 2025 14:02
[2025-03-17] MEDS: DOXYCYCLINE 100MG/100ML 100 ML IV SCH (14:03)
[2025-03-17 15:08] LABS: Amphetamine Screen, Urine Neg (NEGATIVE); Barbiturate Scree,Urine Neg (NEGATIVE); Benzodiazephine Screen, Urine Neg (NEGATIVE); Cannabinoid Screen, Urine Neg (NEGATIVE); Cocaine Screen, Urine Neg (NEGATIVE); Opiate Scree,Urine Neg (NEGATIVE); Phencyclidine Screen, Urine Neg (NEGATIVE)
--- NOTE | 2025-03-17 19:04 | DVHSR ---
APPROVED REPORT EXAM: Two-dimensional and M-mode echocardiogram with Doppler and color Doppler. Blood Pressure: 114/62 mmHg INDICATION Chest Pain RISK FACTORS Obesity: Height: 5'11", Weight: 228 DIMENSIONS LVDd 4.5 (3.8-5.7cm) LA (2D) 3.8 (1.9-4.0cm) Aortic Root 4.3 (2.0-3.7cm) LVDs 2.8 (2.5-4.0cm) LA (MM) (1.9-4.0cm) Aortic Cusp Exc 2.3 (1.5-2.0cm) EF (%) 55.0 (55-70%) Rt. Atrium 3.7 (1.9-4.0cm) Asc. Aorta cm IVSd 1.0 (0.7-1.1cm) RV (D) 3.8 (1.8-2.4cm) PWd 1.0 (0.7-1.1cm) Mitral Valve Mitral Mitral Stenosis E wave 0.50m/s MV Mean GR. mmHg A wave 0.73m/s MV Peak GR. mmHg E/A ratio 0.7 2D MVA cm2 DECEL Time 361ms PRESS 1/2 Time ms Aortic Valve Aortic Valve Aortic Stenosis V1 0.96m/s AO Mean GR. 3mmHg V2 1.17m/s AO Peak GR. 5mmHg LVOT Diameter 2.2 (1.8-2.4cm) Doppler RICH 3.12cm2 Pulmonic Valve V2 0.96m/s Conclusion Left ventricle: The cavity size is normal. Systolic function is normal. The estimated ejection 50-55%. Right ventricle: Systolic function is reduced. Mitral valve: There is no stenosis. There is trace regurgitation. Aortic valve: The valve is tricuspid. There is a sclerosis without stenosis. There is trace regurgitation. Tricuspid valve: There is no stenosis. There is trace regurgitation. Pericardium: There is no pericardial effusion. Inferior vena cava: The vessel is normal in size. There is normal respiratory phasic variation. Aortic root: Aortic root is mildly enlarged.
[2025-03-17] MEDS ORDERED: MELATONIN 5 MG TAB PO ONE (22:00)
[2025-03-17] MEDS: ATORVASTATIN 20 MG TAB PO SCH (22:08)
[2025-03-17] MEDS: MELATONIN 5 MG TAB PO ONE (22:51)
[2025-03-18 01:00] VITALS: BP_SYST 102; BP_SYST 143; BP_DIAS 51; BP_DIAS 87; PULSE 61; PULSE 62; RESP 17; RESP 18; TEMP 97.4; TEMP 97.9; O2SAT 96
[2025-03-18 05:00] VITALS: BP 126/54; PULSE 78; RESP 18; TEMP 97.8; O2SAT 94
[2025-03-18 08:00] VITALS: PULSE 63
[2025-03-18] MEDS: REGADENOSON 0.4 MG/5 ML SYRG IV ONE ×2 (08:28→08:36)
[2025-03-18 10:00] VITALS: BP 109/79; PULSE 67; RESP 18; TEMP 97.8; O2SAT 96
[2025-03-18] MEDS ORDERED: DOXY-286 PO (12:16)
--- NOTE | 2025-03-18 12:17 | DVHDS2 ---
Discharge Summary Date of Admission Mar 16, 2025 at 19:06 Date of Discharge: Mar 18, 2025 Labs/Diagnostic Data: Laboratory Results Test 03/18/25 11:23 03/17/25 14:00 03/17/25 03:19 03/16/25 14:00 POC Glucose 219 mg/dl (70-106) Urine Opiates Screen Neg (NEGATIVE) Urine Fentanyl Screen Neg (NEGATIVE) Urine Barbiturates Screen Neg (NEGATIVE) Urine Phencyclidine Screen Neg (NEGATIVE) Urine Amphetamines Screen Neg (NEGATIVE) Urine Benzodiazepines Screen Neg (NEGATIVE) Urine Cocaine Screen Neg (NEGATIVE) Urine Cannabinoids Screen Neg (NEGATIVE) Sodium Level 139 mmol/L (136-145) Potassium Level 3.4 mmol/L (3.5-5.1) Chloride Level 97 mmol/L (98-107) Carbon Dioxide Level 34 mmol/L (20-31) Anion Gap 8 (5-15) Blood Urea Nitrogen 9 mg/dL (9-23) Creatinine 0.67 mg/dL (0.700-1.30) Glomerular Filtration Rate Calc 108 mL/min (>90) BUN/Creatinine Ratio 13.4 (10.0-20.0) Serum Glucose 108 mg/dL (74-106) Hemoglobin A1c 6.6 % A1C (<5.7) Calcium Level 9.4 mg/dL (8.7-10.4) Magnesium Level 2.0 mg/dL (1.6-2.6) Urine Color Light-yellow (Yellow) Urine Clarity Clear (Clear) Urine pH 6.5 (5.0-9.0) Urine Specific Darragh 1.012 (1.001-1.035) Urine Protein Negative (Negative) Urine Ketones Negative (Negative) Urine Blood Negative /uL (Negative) Urine Nitrite Negative (Negative) Urine Bilirubin Negative (Negative) Urine Urobilinogen Normal mg/dL (Negative) Urine Leukocyte Esterase Negative /uL (Negative) Urine RBC None seen /hpf (0 - 3) Urine Microscopic WBC /HPF (0-3) Urine Squamous Epithelial Cells None seen /hpf (<5) Urine Bacteria None seen /hpf (None Seen) Urine Glucose Normal mg/dL (Normal) Test 03/16/25 13:15 03/16/25 12:25 Troponin I High Sensitivity 5 ng/L (</=54) Triglycerides Level 124 mg/dL (< 150) Cholesterol Level 174 mg/dL (< 200) LDL Cholesterol 113 mg/dL (< 100) HDL Cholesterol 54 mg/dL (40-59) Thyroid Stimulating Hormone (TSH) 0.98 uIU/mL (0.55-4.78) White Blood Count 6.5 10^3/uL (4.4-10.8) Red Blood Count 5.28 10^6/uL (4.5-5.90) Hemoglobin 16.7 g/dL (13.5-17.5) Hematocrit 49.1 % (41.0-53.0) Mean Corpuscular Volume 92.9 fL (80.0-100.0) Mean Corpuscular Hemoglobin 31.6 pg (28.0-32.0) Mean Corpuscular Hemoglobin Concent 34.0 g/dL (32.0-36.0) Red Cell Distribution Width 12.6 % (11.8-14.3) Platelet Count 144 10^3/uL (140-450) Mean Platelet Volume 9.7 fL (6.9-10.8) Neutrophils (%) (Auto) 69.5 % (37.0-80.0) Lymphocytes (%) (Auto) 21.8 % (10.0-50.0) Monocytes (%) (Auto) 7.6 % (0.0-12.0) Eosinophils (%) (Auto) 0.8 % (0.0-7.0) Basophils (%) (Auto) 0.3 % (0.0-2.0) Neutrophils # (Auto) 4.5 10 ^3/uL (1.6-8.6) Lymphocytes # (Auto) 1.4 10 ^3/uL (0.4-5.4) Monocytes # (Auto) 0.5 10 ^3/uL (0-1.3) Eosinophils # (Auto) 0.1 10 ^3/uL (0-0.8) Basophils # (Auto) 0 10 ^3/uL (0-0.2) Nucleated Red Blood Cells 0.2 % Other Laboratory Tests 03/17/25 03:19 03/16/25 12:25 Brief Hx & Hospital Course: see dictated note Condition at Discharge: Fair Final Diagnosis/Problems List chest pain Discharge Disposition: Home Discharge Instruct/Medications Diet: Cardiac 2g Na,low cholest Activity: No Restrictions, As Tolerated Follow Up/Referral: fu with [facility]ett Medications: resume home meds script to pharmacy dc home if ok with cardiology after stress test results Scheduled Doxycycline Hyclate (Doxycycline Hyclate), 100 MG PO BID Lisinopril & Hydrochlorothiazi (Lisinopril/Hydrochlorothi), 1 TAB PO DAILY, (Reported) Pantoprazole Sodium Sesquihydr (Protonix), 40 MG PO DAILY, (Reported) Discontinued Medications [[id number] Mg], MG, (Reported) Discharge Statement: "Patient was advised to return to the ER or call 911 if any headaches, dizziness, shortness of breath, chest pain, abdominal pain, bleeding, fevers, or worsening of medical condition. Patient was counseled about treatment plan, medications, possible side effects, patientverbalized understanding. All questions were answered to the best of my ability. This discharge took greater then 30 minutes in planning, reviewing documentation, counseling the patient, and discussing with other team members." ASSESSMENT ASSESSMENT Assessment chest pain Date of Service: Mar 18, 2025 Billing Provider: ORLANDO BARRON MD Common Visit Codes: 66635-YCP/OBS DISCH DAY >30min ORLANDO BARRON MD Mar 18, 2025 12:17
--- NOTE | 2025-03-18 12:29 | DVHDS ---
DATE OF DISCHARGE: 03/18/2025 HISTORY OF PRESENT ILLNESS: The patient is a 59-year-old gentleman who is admitted with complaints of chest discomfort and has a history of diabetes and hypertension. HOSPITAL COURSE: The patient had troponin levels negative for acute GA. Hemoglobin A1c was 6.6. He was seen in Cardiology Consult by Dr. Carcamo. Echocardiogram done showed ejection fraction of 50-55%. The patient currently is undergoing a Cardiolite stress test. Chest x-ray showed no acute abnormality. The patient will be discharged home. If the stress test is negative, to be on doxycycline 100 mg p.o. b.i.d. for 5 days. He will follow up with his primary in 1 week. FINAL DIAGNOSES: * Chest pain with questionable coronary artery disease with stress test pending. * Questionable acute bronchitis. * Diabetes mellitus. * Hypertension. * Obesity. * Sleep apnea. Time spent in discharge planning and review of plan with the patient and nursing was 38 minutes. MD MICHAEL Elkins/MINNIE TID: [id number] RECEIPT: [id number]
[2025-03-18 12:50] VITALS: BP 143/85; TEMP 36.6
--- NOTE | 2025-03-18 17:25 | DVHPN2 ---
Consult Progress Note Subjective Other Systems: Patient has been discharged. Objective vital signs Vital Sign Date Time Temp Pulse Resp B/P (MAP) Pulse Ox O2 Delivery O2 Flow Rate FiO2 03/18/25 12:50 36.6 03/18/25 10:00 67 18 109/79 (89) 96 03/18/25 08:00 Room Air* 0 21 Total Intake and Output 03/17/25 03/17/25 03/18/25 15:00 23:00 07:00 Intake Total 100 ml 100 ml Balance 100 ml 100 ml laboratory and microbiology Laboratory Tests 03/17/25 03:19 03/16/25 12:25 Test 03/17/25 03:19 Range/Units Serum Glucose 108 H 74-106 mg/dL Problem List/Assessment/Plan Problem List/Assessment/Plan Chest pain, rule out coronary ischemia Rule out structural heart disease Hypertension Type 2 diabetes mellitus Obesity History of tobacco use Plan/Recommendations (Dr. Morse): * Transthoracic echocardiogram to evaluate cardiac function * Chest pain protocol * HEART score: 3 points * Blood pressure control * Single antiplatelet therapy and lipid-lowering agent * Close cardiac surveillance * Nuclear stress test: Preliminary results-abnormal Patient has been discharged from facility. Preliminary stress test per shows a mild lateral fixed wall defect. Called the patient via telephone to offer him a coronary angiogram given abnormal stress test. The patient refuses come back to this facility further cardiac workup. The patient states that he would rather follow up at [place] instead. Patient was educated to come to the nearest emergency room if chest pain persists or changes in nature. Patient verbalized understanding and states he will follow up at [place]. Thank you for allowing us to care for this patient. Please call with any questions or concerns. This medical document was created using an electronic medical record system with voice recognition software and computerized dictation system. Although this document has been carefully reviewed, there might still be some phonetic and typographical errors. Occasional wrong-word or ``sound-alike substitutions may have occurred due to the inherent limitations of voice recognition software. These areas are purely typographical due to imperfections of the software programs and do not reflect any compromise in the patient's medical care. Please read the chart carefully and recognize, using context, where these substitutions have occurred. Plan discussed with: Patient Date of Service: Mar 18, 2025 Billing Provider: ROGERS,RICARDO N ADMINISTRATIVE SUPPORT COORDINATOR Common Visit Codes: NOT BILLABLE RICARDO ROGERS ADMINISTRATIVE SUPPORT COORDINATOR Mar 18, 2025 17:25
== END 2025-03-18 14:00 | disposition home or self-care (01) | DRG 313 ==
LOC: ER 12:16 → OVERFLOW 19:06 → TELE-WESTW 03-17 22:20
PROVIDERS: ADMIT Internal Medicine; ATTEND Internal Medicine
DX: R07.89 Other chest pain (principal); R13.10 Dysphagia, unspecified; E11.9 Type 2 diabetes mellitus without complications; E66.9 Obesity, unspecified; I10 Essential (primary) hypertension; G47.30 Sleep apnea, unspecified; K21.9 Gastro-esophageal reflux disease without esophagitis; Z68.31 Body mass index [BMI] 31.0-31.9, adult; Z82.0 Family history of epilepsy and other diseases of the nervous system; Z87.891 Personal history of nicotine dependence; Z88.1 Allergy status to other antibiotic agents; Z88.5 Allergy status to narcotic agent
CPT/HCPCS: 36415; 71045; 80048; 80061; 80307; 81001; 82962; 83036; 83735; 84443; 84484; 85025; 93005; 93017; 93306; 99291; 99292; G0378; J1815

== ENCOUNTER 2025-03-18 19:02 | Emergency (ER) | payer OTHER, BC ==
[~2025-03-18] VITALS: Ht 180.3 cm; Wt 103.8 kg
[~2025-03-18 19:02] MED LIST changes: +DOXY-286 PO; +LISI-285 PO; +PANT40TA2 PO; -RAMI10CA38
--- NOTE | 2025-03-18 19:14 | ECG ---
[facility] Test Date: 2025-03-18 Test Time: 19:11:26 Pat Name: SANGEETA LARRY Department: Room: Gender: M Ct Scan Tech: GV : 1965 Requested By: RUPINDER RUSSELL Order Number: [id number] Reading MD: Tomasz Morse Measurements Intervals [place] Rate: 66 P: 39 [place]: 162 QRS: 57 QRSD: 112 T: -24 QT: 401 QTc: 421 Interpretive Statements Sinus rhythm Borderline intraventricular conduction delay Borderline repolarization abnormality Electronically Signed On 03-21-2025 10:30:27 PST by Tomasz Morse Please click the below link to view image of tracing.
[2025-03-18 19:41] LABS: Hematocrit 48.5 % (41.0-53.0); Hemoglobin 16.5 g/dL (13.5-17.5); Mean Corpuscular Hemoglobin 31.9 pg (28.0-32.0); Mean Corpuscular Volume 93.9 fL (80.0-100.0); Nucleated Red Blood Cells % 0.1 %
--- NOTE | 2025-03-18 19:43 | DVH ---
CHEST RADIOGRAPH INDICATION: cp TECHNIQUE: Single frontal view of the chest was obtained COMPARISON: XY CHEST PORTABLE on DOS: 03/16/25 FINDINGS: Lines and Tubes: None Lungs: Indistinctness of the right hemidiaphragm. Left basilar Linear density. Bronchovascular crowding due to low lung volumes. No pneumothorax. Cardiomediastinal contours: Unremarkable Bones: No acute osseous abnormality. IMPRESSION: Indistinctness of the right hemidiaphragm which may represent trace effusion with associated atelectasis. Left basilar atelectasis.
[2025-03-18 19:53] LABS: Chloride 99 mmol/L (98-107); Potassium 3.6 mmol/L (3.5-5.1); Sodium 141 mmol/L (136-145)
[2025-03-18 19:54] LABS: Anion Gap 11 (5-15); Calcium 9.7 mg/dL (8.7-10.4)
[2025-03-18 19:59] LABS: BUN/Creatinine Ratio 18.3 (10.0-20.0); Blood Urea Nitrogen 15 mg/dL (9-23); Carbon Dioxide 31 mmol/L (20-31); Glucose 103 mg/dL (74-106)
--- NOTE | 2025-03-18 20:02 | ED.PDOC ---
History of Present Illness HPI Comments This is a 59 year-old male who presents to the ED for re-admission to [facility]. Patient reports being discharged from [facility] around 1430 today. Patient states after being discharged, the fac engineer contacted him and told him to return to [facility] due to abnormal stress test results. Patient returned to the ED for cardiac catheterization and admission. Patients angiogram from previous visit shows mild lateral fixed wall defect Patient otherwise has no further complaints or modifying factors at this time. mild lateral fixed wall defect via angiogram REVIEW OF SYSTEMS: General: No fever, no chills, or fatigue HEENT: No sore throat, no earache, no congestion, no neck pain. Cardiac: + chest pain. No palpitations. Lungs: No shortness of breath, no cough. GI: No nausea, no vomiting, no diarrhea, no constipation, no abdominal pain : No dysuria, frequency, or urgency. No hematuria. Musculoskeletal: No joint pain , no joint swelling, no extremity edema. Skin: No rash, no itching. Neuro: No headache, no dizziness, no weakness (And as sated in HPI) PHYSICAL EXAM: General: Awake, alert and oriented. No acute distress. Skin: Skin in warm, dry and intact. Appropriate color for ethnicity. HEENT: The head is normocephalic and atraumatic. Conjunctivae are clear without exudates or hemorrhage. Sclera is non-icteric. Eyelids are normal in appearance without swelling or lesions. Oral mucosa is pink and moist Neck: The neck is supple with normal range of motion. No JVD. Cardiac: Heart rate and rhythm are normal. No murmurs, gallops, or rubs are auscultated. Respiratory: No signs of respiratory distress. Lung sounds are clear in all lobes bilaterally without rales, rhonchi, or wheezes. Abdominal: Abdomen is soft, non-tender without distention, guarding or rigidity. Bowel sounds are present and normoactive in all four quadrants. Extremities: Lower extremities without edema. Neurological: The patient is awake, alert and oriented to person, place, and time with normal speech. Speech is clear. There is no facial asymmetry. Psychiatric: Appropriate mood and affect. Good judgement and insight. Chief Complaint: Chest Pain Time Seen by MD: 19:38 Primary Care Provider: HENRY Villela Notes: Medications, Allergies Allergies: Coded Allergies: Ciprofloxacin (Verified Allergy, Unknown, 03/16/25) Hydrocodone (Verified Allergy, Unknown, 03/16/25) Home Meds Active Scripts Doxycycline Hyclate (DOXYCYCLINE HYCLATE) 100 Mg Tab, 100 MG PO BID for 5 Days, #10 TAB Prov:ORLANDO BARRON MD 03/18/25 Reported Medications Pantoprazole Sodium Sesquihydr (Protonix) 40 Mg Tab, 40 MG PO DAILY, #30 TAB 03/16/25 Lisinopril & Hydrochlorothiazi (Lisinopril/Hydrochlorothi) 1 Tab Tab, 1 TAB PO DAILY, #30 TAB 5 Refills 03/16/25 Discontinued Reported Medications [[id number] Mg] (Ramipril) 10 MG CAP No Conflict Check, MG 08/06/12 Information Source: Patient Mode of Arrival: Ambulatory Severity: Moderate Timing: Hours Duration: Since onset Past Medical History PAST MEDICAL HISTORY: DM, HTN Surgical History: Denies all surgeries Family History Family History: Reviewed,noncontributory to illness, Unknown Social History Smoker: Non-Smoker Alcohol: Denies ETOH Use Drugs: Denies Drug Use Lives In: Home Was a procedure done? Was a procedure done?: No EKG EKG : Pulse Rate (adult): 66 Cardiac Rhythm: NSR Comments Sinus rhythm Borderline intraventricular conduction delay Borderline repolarization abnormality No STEMI Differential Dx Considerations may include: Differential diagnoses considered include acute ischemic coronary syndrome, aortic dissection, cardiac tamponade, mediastinitis, pulmonary embolus, pneumothorax, tension pneumothorax, esophageal rupture, coronary artery vasospasm, myocarditis, pericarditis, pneumonia, pulmonary edema, esophageal tear, pancreatitis, aortic stenosis, dilated cardiomyopathy, hypertrophic cardiomyopathy, mitral valve prolapse, malignancy, pleuritis, pneumomediastinum, primary pulmonary hypertension, cholecystitis, esophageal spasm, esophagus, gastritis, GERD, peptic ulcer disease, costochondritis, fibromyalgia, rib fracture, herpes zoster, radicular syndromes, thoracic outlet syndrome, somatization. X-Ray, Labs, Meds, VS Vital Signs Date Time Temp Pulse Resp B/P (MAP) Pulse Ox O2 Delivery O2 Flow Rate FiO2 03/19/25 03:00 95 Nasal Cannula* 2 28 03/19/25 03:00 97.5 60 18 129/68 (88) 93 97.5 03/19/25 01:45 60 16 97 Room Air* 0 21 03/19/25 01:45 97.6 60 16 132/80 (97) 95 97.6 03/18/25 20:10 68 03/18/25 20:02 66 03/18/25 19:11 66 03/18/25 19:04 97.4 68 16 162/85 96 97.4 Lab Test 03/18/25 20:19 03/18/25 19:25 Range/Units Troponin I High Sensitivity 5 4 </=54 ng/L White Blood Count 7.4 4.4-10.8 10^3/uL Red Blood Count 5.16 4.5-5.90 10^6/uL Hemoglobin 16.5 13.5-17.5 g/dL Hematocrit 48.5 41.0-53.0 % Mean Corpuscular Volume 93.9 80.0-100.0 fL Mean Corpuscular Hemoglobin 31.9 28.0-32.0 pg Mean Corpuscular Hemoglobin Concent 34.0 32.0-36.0 g/dL Red Cell Distribution Width 12.6 11.8-14.3 % Platelet Count 135 L 140-450 10^3/uL Mean Platelet Volume 10.0 6.9-10.8 fL Neutrophils (%) (Auto) 66.6 37.0-80.0 % Lymphocytes (%) (Auto) 22.4 10.0-50.0 % Monocytes (%) (Auto) 9.2 0.0-12.0 % Eosinophils (%) (Auto) 1.5 0.0-7.0 % Basophils (%) (Auto) 0.3 0.0-2.0 % Neutrophils # (Auto) 4.9 1.6-8.6 10 ^3/uL Lymphocytes # (Auto) 1.6 0.4-5.4 10 ^3/uL Monocytes # (Auto) 0.7 0-1.3 10 ^3/uL Eosinophils # (Auto) 0.1 0-0.8 10 ^3/uL Basophils # (Auto) 0 0-0.2 10 ^3/uL Nucleated Red Blood Cells 0.1 % Sodium Level 141 136-145 mmol/L Potassium Level 3.6 3.5-5.1 mmol/L Chloride Level 99 98-107 mmol/L Carbon Dioxide Level 31 20-31 mmol/L Anion Gap 11 5-15 Blood Urea Nitrogen 15 9-23 mg/dL Creatinine 0.82 0.700-1.30 mg/dL Glomerular Filtration Rate Calc 101 >90 mL/min BUN/Creatinine Ratio 18.3 10.0-20.0 Serum Glucose 103 74-106 mg/dL Calcium Level 9.7 8.7-10.4 mg/dL B-Type Natriuretic Peptide 24.23 0-100 pg/mL [place] [id number] Ph: [phone] DIAGNOSTIC IMAGING Diagnostic Imaging Report : [id number] Signed PATIENT: SANGEETA LARRY ACCT: [id number] UNIT: [id number] : 1965 LOC: ER ROOM / BED: / AGE / SEX: 59 / M ADM STATUS: REG ER SERVICE 07 ORDERING PHYSICIAN: RUPINDER RUSSELL MD PROCEDURE(s): CXR1 - CHEST XRAY 1 VIEW REASON: cp ORDER NUMBER(s): [id number], ACCESSION NUMBER(s): [id number] CHEST RADIOGRAPH INDICATION: cp TECHNIQUE: Single frontal view of the chest was obtained COMPARISON: XY CHEST PORTABLE on DOS: 03/16/25 FINDINGS: Lines and Tubes: None Lungs: Indistinctness of the right hemidiaphragm. Left basilar Linear density. Bronchovascular crowding due to low lung volumes. No pneumothorax. Cardiomediastinal contours: Unremarkable Bones: No acute osseous abnormality. IMPRESSION: Indistinctness of the right hemidiaphragm which may represent trace effusion with associated atelectasis. Left basilar atelectasis. Time of 1ST Reevaluation: 20:30 Reevaluation 1ST: Unchanged Patient Education/Counseling: Diagnosis, Treatment, Need For Follow Up Family Education/Counseling: No Family Present SEPSIS Sepsis Screen Date sepsis recognized/suspect: Mar 18, 2025 Time Sepsis recognized/suspect: 1903 Recent Procedure: No On Antibiotic Therapy: No Respiratory Rate >20: No Heart Rate >90: No Temp<36 C (96.8 F) or >38.3 C: No SBP <90 or MAP <65 mmHG: No New Acute Mental Status Change: No Is the patient on CPAP, BIPAP,: No Physician Orders Chest Xray 1 View (03/18/25 19:08) Vital Signs Q1HR (03/18/25 19:08) Saline Lock (03/18/25 19:08) Altitude Chamber Technician (03/18/25 ) Electrocardigram (03/18/25 22:08) Imaging Transfer Request (03/19/25 03:43) Vital Signs Date Time Temp Pulse Resp B/P (MAP) Pulse Ox O2 Delivery O2 Flow Rate FiO2 03/19/25 03:00 95 Nasal Cannula* 2 28 03/19/25 03:00 97.5 60 18 129/68 (88) 93 97.5 03/19/25 01:45 60 16 97 Room Air* 0 21 03/19/25 01:45 97.6 60 16 132/80 (97) 95 97.6 03/18/25 20:10 68 03/18/25 20:02 66 03/18/25 19:11 66 03/18/25 19:04 97.4 68 16 162/85 96 97.4 Laboratory Tests Test 03/18/25 19:25 White Blood Count 7.4 10^3/uL (4.4-10.8) Departure 1 Departure Time of Disposition: 05:41 Impression: Primary Impression: Abnormal nuclear stress test Disposition: 02 SHORT TERM HOSPITAL Condition: Stable Comments 59-year-old male who presented to the emergency department after abnormal nuclear stress test requiring cardiac catheterization during recent admission Case discussed with [facility] physician. Patient will be transferred to [facility] for further treatment, evaluation and monitoring. Critical Care Note Critical Care Time?: No Stability Stability form required: No Heart Score Heart Score: Heart Score Response (Comments) Value History Moderate Suspicious 1 EKG Normal 0 Age 45-64 1 Risk Factors 1 or 2 risk factors 1 Troponin N/A 0 Total 3 I personally scribed for RUPINDER RUSSELL MD ([email or web address]) on 03/18/25 at 20:02. Electronically submitted by Selena Pool ([employer]). I personally scribed for RUPINDER RUSSELL MD ([email or web address]) on 03/18/25 at 20:06. Electronically submitted by Selena Pool ([employer]). RUPINDER RUSSELL MD Mar 18, 2025 20:02
[2025-03-19 01:45] VITALS: PULSE 60; RESP 16; O2SAT 97
[2025-03-19 03:00] VITALS: O2SAT 95
--- NOTE | 2025-03-19 03:56 | ECG ---
[facility] Test Date: 2025-03-18 Test Time: 20:10:58 Pat Name: SANGEETA LARRY Department: ED Room: Gender: M Merchandising Stock Associate: : 1965 Requested By: RUPINDER RUSSELL Order Number: [id number] Reading MD: Tomasz Morse Measurements Intervals [place] Rate: 68 P: 52 GA: 199 QRS: 75 QRSD: 111 T: -22 QT: 391 QTc: 416 Interpretive Statements Sinus rhythm Borderline T abnormalities, inferior leads Electronically Signed On 03-21-2025 10:30:29 PST by Tomasz Morse Please click the below link to view image of tracing.
[2025-03-19 07:27] VITALS: BP 116/58; TEMP 97.3
[2025-03-19 07:30] VITALS: PULSE 68; RESP 15; O2SAT 95
== END 2025-03-19 07:54 | disposition short-term general hospital (02) ==
LOC: ER 19:02
DX: R94.39 Abnormal result of other cardiovascular function study (principal); E11.9 Type 2 diabetes mellitus without complications; I10 Essential (primary) hypertension; Z79.899 Other long term (current) drug therapy; Z88.1 Allergy status to other antibiotic agents; Z88.5 Allergy status to narcotic agent
CPT/HCPCS: 36415; 71045; 80048; 83880; 84484; 85025; 93005